=== PATIENT | female | born 2000 | race Caucasian/White ===

== ENCOUNTER 2021-10-20 15:37 | Emergency (ER) | payer OTHER ==
[~2021-10-20] VITALS: Ht 160 cm; Wt 63.5 kg
[2021-10-20 15:45] VITALS: BP 116/75
--- NOTE | 2021-10-20 16:04 | NUR ---
SEEN AND EVALUATED BY [employer]. MEDICALLY CLEARED D/C TO [facility] IN STABLE CONDITION.
== END 2021-10-20 16:04 ==
LOC: ER 15:50
DX: Z02.89 Encounter for other administrative examinations (principal)